=== PATIENT | female | born 1975 | race Caucasian/White ===

== ENCOUNTER 2020-08-14 11:34 | Emergency (ER) | payer OTHER ==
[2020-08-14 12:30] LABS: BASOPHIL 0.8 % (0-2); EOSINOPHIL 2.2 % (0-5); HCT 41.3 % (37.0-47.0); LYMPHOCYTE 23.6 % (15-48); MCH 31.8 pg (25.0-31.0); MCHC 33.9 g/dL (32.0-36.0); MCV 93.9 fL (78.0-100.0); MONOCYTE 6.2 % (0-12); MPV 10.3 fL (6.0-9.5); NEUTROPHIL 66.6 % (41-80); NRBC 0; PLT 242 K/uL (150-400); RDW 13.2 % (11.5-14.0); WBC 7.1 K/uL (4.0-10.5)
[2020-08-14 12:40] LABS: INR 1.05 (0.9-1.2); PTT 28.2 SECONDS (22.2-34.7)
[2020-08-14 12:47] LABS: ALBUMIN 3.8 g/dL (3.4-5.0); BILIRUBIN - TOTAL 0.6 mg/dL (0.2-1.0); BUN/CREAT RATIO (CALC) 12.5 RATIO; CREATININE 0.8 mg/dL (0.51-0.95); GLOBULIN (CALCULATION) 3.1 g/dL; POTASSIUM 4.1 mmol/L (3.5-5.1); TOTAL PROTEIN 6.9 g/dL (6.4-8.2)
== END 2020-08-14 15:59 | disposition home or self-care (01) ==
LOC: FER 11:34
PROVIDERS: Emergency Medicine
DX: R07.89 Other chest pain (principal); I49.3 Ventricular premature depolarization; E07.9 Disorder of thyroid, unspecified; F32.9 Major depressive disorder, single episode, unspecified; G35 Multiple sclerosis; Z79.899 Other long term (current) drug therapy
CPT/HCPCS: 36415; 71045; 80053; 84484; 85025; 85379; 85610; 85730; 93005

== ENCOUNTER 2020-11-02 11:03 | Emergency (ER) | payer OTHER ==
[~2020-11-02] VITALS: Ht 175.3 cm; Wt 90.9 kg
[2020-11-02 12:14] LABS: BASOPHIL 0.9 % (0-2); EOSINOPHIL 2.2 % (0-5); HCT 38.3 % (37.0-47.0); HGB 13.3 g/dl (12.5-16.0); LYMPHOCYTE 21.6 % (15-48); MCH 31.7 pg (25.0-31.0); MCHC 34.7 g/dL (32.0-36.0); MCV 91.2 fL (78.0-100.0); MONOCYTE 7.1 % (0-12); MPV 10.4 fL (6.0-9.5); NEUTROPHIL 67.9 % (41-80); NRBC 0; PLT 234 K/uL (150-400); WBC 7.7 K/uL (4.0-10.5)
[2020-11-02 12:21] LABS: ALBUMIN 3.8 g/dL (3.4-5.0); BILIRUBIN - TOTAL 0.5 mg/dL (0.2-1.0); BUN/CREAT RATIO (CALC) 14.5 RATIO; CREATININE 0.76 mg/dL (0.51-0.95); GLOBULIN (CALCULATION) 3.2 g/dL; POTASSIUM 4.2 mmol/L (3.5-5.1)
[2020-11-02 12:30] LABS: BILIRUBIN NEGATIVE (NEGATIVE); BLOOD NEGATIVE Ery/uL (NEGATIVE); CLARITY CLEAR (CLEAR); COLOR YELLOW (YELLOW); GLUCOSE (U) NORMAL (NORMAL); LEUKOCYTES NEGATIVE Leu/uL (NEGATIVE); NITRITE NEGATIVE (NEGATIVE); PROTEIN NEGATIVE (NEGATIVE); SPECIFIC GRAVITY 1.025 (1.001-1.030); UROBILINOGEN 0.2 mg/dL (0.2-1.0)
[2020-11-02 12:37] LABS: LACTIC ACID 0.8 mmol/L (0.4-1.9)
== END 2020-11-02 16:47 | disposition home or self-care (01) ==
LOC: FER 11:03
PROVIDERS: Emergency Medicine
DX: K63.89 Other specified diseases of intestine (principal); E03.9 Hypothyroidism, unspecified; Z87.19 Personal history of other diseases of the digestive system; Z98.890 Other specified postprocedural states; Z79.899 Other long term (current) drug therapy
CPT/HCPCS: 36415; 80053; 81003; 83605; 85025; 87040; Q9967